=== PATIENT | female | born 1955 | race Caucasian/White ===

== ENCOUNTER 2024-07-21 10:16 | Inpatient (IN) ==
[2024-07-21 11:07] LABS: Basophils # (auto) 0.04 K/uL (0.00-0.20); Basophils % (auto) 0.6 %; Eosinophils # (auto) 0.16 K/uL (0.00-0.50); Eosinophils % (auto) 2.2 %; Hematocrit (blood only) 40.6 % (37.0-47.0); Hemoglobin 13.3 g/dl (12.0-16.0); Immature Granulocytes # (auto) 0.03 K/uL (0.01-0.20); Immature Granulocytes % (auto) 0.4 %; Lymphocytes % (auto) 25.2 %; Mean Corpuscular Hemoglobin 28.8 pg (25.0-34.0); Mean Corpuscular Hgb Conc 32.8 g/dL (32.0-36.0); Mean Corpuscular Volume 87.9 fL (80.0-100.0); Mean Platelet Volume 10.7 fL (9.4-12.4); Monocytes # (auto) 0.59 K/uL (0.11-0.59); Monocytes % (auto) 8.3 %; Neutrophils # (auto) 4.52 K/uL (1.40-6.50); Neutrophils % (auto) 63.3 %; Platelet Count 216 K/uL (130-400); RDW Coefficient of Variation 13.8 % (11.5-14.5); RDW Standard Deviation 44.4 fL (36.4-46.3); Red Blood Count 4.62 M/uL (4.20-5.40); White Blood Count 7.14 K/ul (4.8-10.8)
--- NOTE | 2024-07-21 11:26 | XRay Report ---
XR chest 1V portable CLINICAL HISTORY: Chest pain, nonspecific COMPARISON STUDY: None FINDINGS: Single view portable chest demonstrates no acute cardiopulmonary process. There is evidence of a prior cardiac catheter valve replacement and coronary bypass procedure. Heart size is slightly enlarged. There is mild pulmonary vascular congestion. There is no focal airspace opacity or pleural effusion. There is no pneumothorax. IMPRESSION: Mild cardiomegaly and pulmonary vascular congestion. Otherwise negative portable chest ACT 112: Negative or not required by law. Electronically signed by: Fina Hernandez M.D. 07/21/2024 11:24 AM
[2024-07-21 11:27] LABS: Partial Thromboplastin Ratio 1.1; Partial Thromboplastin Time 29 Seconds (21-31); Prothrombin Time 11.1 Seconds (9.0-12.0)
--- NOTE | 2024-07-21 11:32 | Emergency Department Note ---
Impression & Plan Paroxysmal atrial fibrillation with RVR, COVID-19 virus infection, Shortness of breath, On apixaban therapy ED Provider Note NAME: FANY CALDERÓN AGE: 68 SEX: F : 1955 ARRIVES VIA: Walk-In INFORMANT: Patient ED PROVIDER(S): Thor Whitfield MD CHIEF COMPLAINT: Atrial fibrillation, palpitations, shortness of breath. PLAN: Disposition: Admit MEDICAL DECISION MAKING: The patient is a pleasant 68-year-old woman with past medical history of paroxysmal atrial fibrillation on Eliquis with recent recurrence of her atrial fibrillation this past week who presents to the emergency department for evaluation of ongoing atrial fibrillation with RVR. Patient presents in the setting of being seen at [place] emergency department and per the patient's understanding her EKG was reviewed with her [facility] reagent tender and she was suspected to have atrial flutter. Patient was started on metoprolol 25 mg twice daily. Patient understands that she had not been on metoprolol after her initial diagnosis of A-fib due to having a heart rate in the low 60s when in normal sinus rhythm. Patient reports she began to notice her heart rate becoming fast this past . Despite starting on metoprolol she reports she continues to feel her heart rate fluctuate up and down and feels associated shortness of breath. Patient symptoms occur in the setting of having upper respiratory illness that began a month ago and subsequently resolved over a couple of weeks but then recurred with some more pronounced sinus congestion where she was seen by her PCP and treated with a 10-day course of Augmentin which she completed a week ago. Patient reports that when her initial illness began a month ago she was tested for flu, RSV and COVID-19 and these were negative. She denies any chest pain. She denies any nausea, vomiting or diarrhea. She reports normal oral intake. On evaluation patient is in no acute distress, afebrile with heart rate in the 110s-130s and atrial fibrillation with RVR. She appears clinically dry. EKG demonstrates Atrial fibrillation versus atrial flutter with variable AV block with RVR, 128 bpm without overt acute ischemia. CXR negative for acute cardiopulmonary process per my personal preliminary review/interpretation. WBC 7K with neutrophilia or left shift. H/H within normal limits. Chemistry without metabolic acidosis. BUNs/creatinine is 23 consistent with patient's clinically dry appearance. LFTs are unremarkable. Magnesium was 1.8, low normal and so 1 g of IV magnesium administered. High-sensitivity troponin 10.0, within normal limits. TSH within normal limits. BNP is 450, nonspecific and suspected to be related to the patient's irregular rhythm as opposed to hypervolemia. Respiratory [employer] was positive for COVID-19, which upon reviewing with the patient suspected to correspond with her most recent upper respiratory's, sinus illness for which she was treated by her PCP with antibiotics. Patient denies any active respiratory symptoms and so acute/new COVID-19 infection considered less likely. Patient was treated with IV fluid hydration as well as initial low dose of 2.5 mg of IV Lopressor which had minimal effect on heart rate and so full 5 mg dose of IV Lopressor administered with some improvement to the 90s-low 100s. Patient did report feeling some improvement subsequently. However, she still reports feeling palpitations. We did discuss option for dose increase in her metoprolol and follow-up outpatient with the cardiology office versus admission. Ultimately she did prefer admission at this time. Patient was treated with additional 5 mg of IV Lopressor for additional rate control. [facility] for [facility]. Further management per admitting team. Triage Nursing notes reviewed and agree them. Prior/external medical records reviewed Vital Signs: reviewed Differential diagnosis: Premature contractions, electrolyte abnormality, cardiac dysrhythmia, thyroid dysfunction, pulmonary embolism, infection, gastrointestinal, as well as other pathologies. ER treatment provided: See below. Diagnostics interpreted by me: ECG: Atrial fibrillation versus atrial flutter with variable AV block with RVR, 128 bpm, no overt ST elevation or depression, QTc 435, QRS 86. Cardiac Monitoring: An order for continuous cardiac monitoring was placed and demonstrated Atrial fibrillation versus atrial flutter with variable AV block with RVR, 128 bpm. Laboratory studies: See below Imaging studies: See below Consultation(s[facility] HPI: The patient is a pleasant 68-year-old woman with past medical history of paroxysmal atrial fibrillation on Eliquis with recent recurrence of her atrial fibrillation this past week who presents to the emergency department for evaluation of ongoing atrial fibrillation with RVR. Patient presents in the setting of being seen at [place] emergency department and per the patient's understanding her EKG was reviewed with her [facility] reagent tender and she was suspected to have atrial flutter. Patient was started on metoprolol 25 mg twice daily. Patient understands that she had not been on metoprolol after her initial diagnosis of A-fib due to having a heart rate in the low 60s when in normal sinus rhythm. Patient reports she began to notice her heart rate becoming fast this past . Despite starting on metoprolol she reports she continues to feel her heart rate fluctuate up and down and feels associated shortness of breath. Patient symptoms occur in the setting of having upper respiratory illness that began a month ago and subsequently resolved over a couple of weeks but then recurred with some more pronounced sinus congestion where she was seen by her PCP and treated with a 10-day course of Augmentin which she completed a week ago. Patient reports that when her initial illness began a month ago she was tested for flu, RSV and COVID-19 and these were negative. She denies any chest pain. She denies any nausea, vomiting or diarrhea. She reports normal oral intake. ROS: See above HPI for pertinent positives & negatives. A total of 10 systems reviewed and were otherwise negative. VITALS:See Below PHYSICAL EXAMINATION: GENERAL: Awake, alert, in no distress HENT: Normocephalic, atraumatic. Oropharynx with dry mucous membranes and otherwise unremarkable. EYES: Normal conjunctiva. Sclera non-icteric. NECK: Supple. No nuchal rigidity. FROM. No JVD. RESPIRATORY: Clear to auscultation. CARDIAC: Tachycardic rate, irregular rhythm. Extremities warm and well perfused. Pulses equal. ABDOMEN: Soft, non-distended. No tenderness to palpation. No rebound or guarding. No masses. MUSCULOSKELETAL: Chest examination reveals no tenderness. The back is symmetrical on inspection without obvious abnormality. There is no CVA tenderness to palpation. No joint edema. LOWER EXTREMITIES: Calves are equal size bilaterally and non-tender. No edema. No discoloration. NEURO: Normal sensorium. No sensory or motor deficits noted. SKIN: No rash or jaundice noted. ED COURSE: Critical Care: I have personally spent greater than 35 minutes of critical care time in the direct management of this patient. This includes bedside care, interpretation of diagnostic studies, and testing, discussion with consultants, patient, and family members, and other required patient management activities. This 35 minutes is in excess of all separately billable procedures. Thor Whitfield MD Past Med/Surg History Problem List (Updated 07/22/24 @ 01:47 by Thor Whitfield MD) On apixaban therapy (Acute) Shortness of breath (Acute) COVID-19 virus infection (Acute) Acute heart failure with preserved ejection fraction Paroxysmal atrial fibrillation with RVR (Acute) Right thyroid nodule Multiple thyroid nodules Medical History Afib Fibromuscular dysplasia Social History Smoking Status: Never smoker Hx Alcohol Use: Yes Hx Substance Use: No Preferred Language: Turkish Communication Ability: Effective Housekeeping And Laundry Team Leader Required: No Beliefs That Will Affect Care: None Current Living Situation: Spouse Other Information That Helps Us Care for You: No Feels Safe at Home: Yes Safety Concerns: Feels Safe At This Time Assistive Devices: None Allergies Allergies Allergy/AdvReac Type Severity Reaction Status Date / Time clarithromycin Allergy Unknown . Verified 06/22/23 14:06 Sulfa (Sulfonamide Allergy Unknown . Verified 06/22/23 14:06 Antibiotics) sulfamethoxazole Allergy Unknown . Verified 06/22/23 14:06 trimethoprim Allergy Unknown . Verified 06/22/23 14:06 Home Meds Home Medications Medication Instructions Recorded Confirmed albuterol sulfate 90 mcg/actuation 2 puff inhalation Q6H PRN 12/30/18 07/21/24 aerosol inhaler (ProAir HFA) Shortness Of Breath Or Wheezing apixaban 5 mg tablet (Eliquis) 5 mg PO BID 12/30/18 07/21/24 glucosamine-chondroitin 750 mg-600 2 tab PO DAILY 12/30/18 07/21/24 mg tablet ascorbic acid 100 mg-zinc sulfate 1 tab PO DAILY 06/22/23 07/21/24 200 mg tablet cholecalciferol (vitamin D3) 50 5,000 unit PO DAILY 06/22/23 07/21/24 mcg (2,000 unit) capsule (Vitamin D3) coenzyme Q10 100 mg capsule 200 mg PO DAILY 06/22/23 07/21/24 (CoQ-10) omeprazole 40 mg capsule,delayed 40 mg PO DAILY 06/22/23 07/21/24 release vitamin B complex 1 cap PO DAILY 06/22/23 07/21/24 acetaminophen 500 mg tablet 1,000 mg PO Q6H PRN Pain 07/21/24 07/21/24 ezetimibe 10 mg tablet 10 mg PO DAILY 07/21/24 07/21/24 metoprolol tartrate 25 mg tablet 25 mg PO BID 07/21/24 07/21/24 trazodone 100 mg tablet 25 mg PO HS 07/21/24 07/21/24 Results & Data (ED) Vital Signs Vital Signs - 24 hr 07/21/24 10:18 07/21/24 10:35 07/21/24 10:42 Temperature 36.5 C Temperature Source Temporal Artery Scan Pulse Rate 124 H 116 H Pulse Rate [Left Finger] Pulse Rate from SpO2 Sensor Pulse Rhythm [Left Finger] Pulse Strength [Left Finger] Respiratory Rate 18 17 Respiratory Effort / Characteristics Non-Labored Spontaneous Respiratory Depth Normal Blood Pressure 115/82 Blood Pressure [Left Arm] Blood Pressure Mean 93 Blood Pressure Mean [Left Arm] Blood Pressure Position Sitting Blood Pressure Position [Left Arm] Pulse Oximetry 97 98 Oxygen Delivery Method Room Air Room Air Sepsis Recent Fever Within 48 Hours No Sepsis New/Unexplained Change in Mental Status No Sepsis Action Taken by Nursing No Action Required 07/21/24 10:54 07/21/24 11:43 07/21/24 11:43 Temperature Temperature Source Pulse Rate 115 H 128 H Pulse Rate [Left Finger] Pulse Rate from SpO2 Sensor Pulse Rhythm [Left Finger] Pulse Strength [Left Finger] Respiratory Rate Respiratory Effort / Characteristics Respiratory Depth Blood Pressure 129/90 Blood Pressure [Left Arm] Blood Pressure Mean 95 Blood Pressure Mean [Left Arm] Blood Pressure Position Blood Pressure Position [Left Arm] Pulse Oximetry Oxygen Delivery Method Sepsis Recent Fever Within 48 Hours Sepsis New/Unexplained Change in Mental Status Sepsis Action Taken by Nursing 07/21/24 12:12 07/21/24 12:15 07/21/24 12:31 Temperature Temperature Source Pulse Rate 117 H 97 H Pulse Rate [Left Finger] Pulse Rate from SpO2 Sensor Pulse Rhythm [Left Finger] Pulse Strength [Left Finger] Respiratory Rate 16 22 Respiratory Effort / Characteristics Respiratory Depth Blood Pressure 112/77 Blood Pressure [Left Arm] Blood Pressure Mean 106 Blood Pressure Mean [Left Arm] Blood Pressure Position Blood Pressure Position [Left Arm] Pulse Oximetry Oxygen Delivery Method Sepsis Recent Fever Within 48 Hours Sepsis New/Unexplained Change in Mental Status Sepsis Action Taken by Nursing 07/21/24 12:31 07/21/24 12:33 07/21/24 12:36 Temperature Temperature Source Pulse Rate 106 H 127 H Pulse Rate [Left Finger] Pulse Rate from SpO2 Sensor Pulse Rhythm [Left Finger] Pulse Strength [Left Finger] Respiratory Rate 12 9 L Respiratory Effort / Characteristics Respiratory Depth Blood Pressure 112/77 Blood Pressure [Left Arm] Blood Pressure Mean 106 Blood Pressure Mean [Left Arm] Blood Pressure Position Blood Pressure Position [Left Arm] Pulse Oximetry Oxygen Delivery Method Sepsis Recent Fever Within 48 Hours Sepsis New/Unexplained Change in Mental Status Sepsis Action Taken by Nursing 07/21/24 12:43 07/21/24 12:43 07/21/24 12:43 Temperature Temperature Source Pulse Rate Pulse Rate [Left Finger] Pulse Rate from SpO2 Sensor Pulse Rhythm [Left Finger] Pulse Strength [Left Finger] Respiratory Rate Respiratory Effort / Characteristics Respiratory Depth Blood Pressure 116/82 116/82 116/82 Blood Pressure [Left Arm] Blood Pressure Mean 109 109 109 Blood Pressure Mean [Left Arm] Blood Pressure Position Blood Pressure Position [Left Arm] Pulse Oximetry Oxygen Delivery Method Sepsis Recent Fever Within 48 Hours Sepsis New/Unexplained Change in Mental Status Sepsis Action Taken by Nursing 07/21/24 12:49 07/21/24 12:52 07/21/24 13:12 Temperature Temperature Source Pulse Rate 112 H 124 H 127 H Pulse Rate [Left Finger] Pulse Rate from SpO2 Sensor 124 H Pulse Rhythm [Left Finger] Pulse Strength [Left Finger] Respiratory Rate 14 Respiratory Effort / Characteristics Respiratory Depth Blood Pressure 116/82 116/82 Blood Pressure [Left Arm] Blood Pressure Mean Blood Pressure Mean [Left Arm] Blood Pressure Position Blood Pressure Position [Left Arm] Pulse Oximetry 98 Oxygen Delivery Method Sepsis Recent Fever Within 48 Hours Sepsis New/Unexplained Change in Mental Status Sepsis Action Taken by Nursing 07/21/24 13:30 07/21/24 13:30 07/21/24 13:30 Temperature Temperature Source Pulse Rate 103 H Pulse Rate [Left Finger] Pulse Rate from SpO2 Sensor 89 Pulse Rhythm [Left Finger] Pulse Strength [Left Finger] Respiratory Rate 14 Respiratory Effort / Characteristics Respiratory Depth Blood Pressure 137/88 137/88 Blood Pressure [Left Arm] Blood Pressure Mean 94 94 Blood Pressure Mean [Left Arm] Blood Pressure Position Blood Pressure Position [Left Arm] Pulse Oximetry 96 Oxygen Delivery Method Sepsis Recent Fever Within 48 Hours Sepsis New/Unexplained Change in Mental Status Sepsis Action Taken by Nursing 07/21/24 14:21 07/21/24 14:23 07/21/24 14:27 Temperature Temperature Source Pulse Rate 106 H 99 H 92 H Pulse Rate [Left Finger] Pulse Rate from SpO2 Sensor 107 H 92 H Pulse Rhythm [Left Finger] Pulse Strength [Left Finger] Respiratory Rate 13 22 Respiratory Effort / Characteristics Respiratory Depth Blood Pressure Blood Pressure [Left Arm] Blood Pressure Mean Blood Pressure Mean [Left Arm] Blood Pressure Position Blood Pressure Position [Left Arm] Pulse Oximetry 96 98 Oxygen Delivery Method Sepsis Recent Fever Within 48 Hours Sepsis New/Unexplained Change in Mental Status Sepsis Action Taken by Nursing 07/21/24 14:30 07/21/24 14:30 07/21/24 14:45 Temperature Temperature Source Pulse Rate 107 H Pulse Rate [Left Finger] Pulse Rate from SpO2 Sensor 88 Pulse Rhythm [Left Finger] Pulse Strength [Left Finger] Respiratory Rate 20 Respiratory Effort / Characteristics Respiratory Depth Blood Pressure 109/85 109/85 Blood Pressure [Left Arm] Blood Pressure Mean 100 100 Blood Pressure Mean [Left Arm] Blood Pressure Position Blood Pressure Position [Left Arm] Pulse Oximetry 93 Oxygen Delivery Method Sepsis Recent Fever Within 48 Hours Sepsis New/Unexplained Change in Mental Status Sepsis Action Taken by Nursing 07/21/24 15:00 07/21/24 15:00 07/21/24 15:00 Temperature Temperature Source Pulse Rate 124 H Pulse Rate [Left Finger] Pulse Rate from SpO2 Sensor 115 H Pulse Rhythm [Left Finger] Pulse Strength [Left Finger] Respiratory Rate 12 Respiratory Effort / Characteristics Respiratory Depth Blood Pressure 110/80 110/80 Blood Pressure [Left Arm] Blood Pressure Mean 84 84 Blood Pressure Mean [Left Arm] Blood Pressure Position Blood Pressure Position [Left Arm] Pulse Oximetry 97 Oxygen Delivery Method Sepsis Recent Fever Within 48 Hours Sepsis New/Unexplained Change in Mental Status Sepsis Action Taken by Nursing 07/21/24 15:00 07/21/24 15:07 07/21/24 15:07 Temperature Temperature Source Pulse Rate Pulse Rate [Left Finger] 115 H Pulse Rate from SpO2 Sensor Pulse Rhythm [Left Finger] Regular Pulse Strength [Left Finger] Normal Respiratory Rate 20 Respiratory Effort / Characteristics Respiratory Depth Blood Pressure 110/80 Blood Pressure [Left Arm] 110/80 Blood Pressure Mean 84 Blood Pressure Mean [Left Arm] 90 Blood Pressure Position Blood Pressure Position [Left Arm] Sitting Pulse Oximetry 99 98 Oxygen Delivery Method Room Air Room Air Sepsis Recent Fever Within 48 Hours Sepsis New/Unexplained Change in Mental Status Sepsis Action Taken by Nursing 07/21/24 15:27 07/21/24 15:30 07/21/24 15:30 Temperature Temperature Source Pulse Rate 111 H Pulse Rate [Left Finger] Pulse Rate from SpO2 Sensor 100 H Pulse Rhythm [Left Finger] Pulse Strength [Left Finger] Respiratory Rate 17 Respiratory Effort / Characteristics Respiratory Depth Blood Pressure 135/98 135/98 Blood Pressure [Left Arm] Blood Pressure Mean 102 102 Blood Pressure Mean [Left Arm] Blood Pressure Position Blood Pressure Position [Left Arm] Pulse Oximetry 98 Oxygen Delivery Method Sepsis Recent Fever Within 48 Hours Sepsis New/Unexplained Change in Mental Status Sepsis Action Taken by Nursing 07/21/24 15:33 07/21/24 15:34 07/21/24 16:06 Temperature Temperature Source Pulse Rate 99 H 111 H 101 H Pulse Rate [Left Finger] Pulse Rate from SpO2 Sensor 106 H 115 H Pulse Rhythm [Left Finger] Pulse Strength [Left Finger] Respiratory Rate 20 24 Respiratory Effort / Characteristics Respiratory Depth Blood Pressure 135/98 Blood Pressure [Left Arm] Blood Pressure Mean Blood Pressure Mean [Left Arm] Blood Pressure Position Blood Pressure Position [Left Arm] Pulse Oximetry 99 95 Oxygen Delivery Method Sepsis Recent Fever Within 48 Hours Sepsis New/Unexplained Change in Mental Status Sepsis Action Taken by Nursing Laboratory Data Attestation: I reviewed the patient's lab results. 07/21/24 10:40 07/21/24 10:40 Lab Results 07/21/24 Range/Units 10:40 WBC 7.14 (4.8-10.8) K/ul RBC 4.62 (4.20-5.40) M/uL Hgb 13.3 (12.0-16.0) g/dl Hct 40.6 (37.0-47.0) % MCV 87.9 (80.0-100.0) fL MCH 28.8 (25.0-34.0) pg MCHC 32.8 (32.0-36.0) g/dL RDW Std Deviation 44.4 (36.4-46.3) fL RDW Coeff of Tl 13.8 (11.5-14.5) % Plt Count 216 (130-400) K/uL MPV 10.7 (9.4-12.4) fL Immature Gran % (Auto) 0.4 % Neut % (Auto) 63.3 % Lymph % (Auto) 25.2 % [place] % (Auto) 8.3 % Eos % (Auto) 2.2 % Baso % (Auto) 0.6 % Neut # (Auto) 4.52 (1.40-6.50) K/uL Lymph # (Auto) 1.80 (1.20-3.40) K/uL [place] # (Auto) 0.59 (0.11-0.59) K/uL Eos # (Auto) 0.16 (0.00-0.50) K/uL Baso # (Auto) 0.04 (0.00-0.20) K/uL Immature Gran # (Auto) 0.03 (0.01-0.20) K/uL PT 11.1 (9.0-12.0) Seconds INR 1.0 (0.9-1.1) APTT 29 (21-31) Seconds PTT Ratio 1.1 Sodium 140 (136-145) mmol/L Potassium 4.2 (3.5-5.1) mmol/L Chloride 107 (98-107) mmol/L Carbon Dioxide 27 (21-32) mmol/L Anion Gap 6 (3-11) BUN 18 (6-23) mg/dl Creatinine 0.77 (0.6-1.2) mg/dl Est Cr Clr Drug Dosing 69.9 ml/min eGFR 85.02 BUN/Creatinine Ratio 23.4 H (10-20) Glucose 98 (70-99(Fasting)) mg/dl Calcium 9.4 (8.6-10.3) mg/dl Phosphorus 3.1 (2.5-4.9) mg/dl Magnesium 1.8 (1.7-2.4) mg/dl Total Bilirubin 0.5 (0.2-1.0) mg/dl AST 21 (13-39) U/L ALT 21 (7-52) U/L Alkaline Phosphatase 61 (34-104) U/L Troponin I High Sens 10.0 (0-14) pg/ml B-Natriuretic Peptide 452 H (0-100) pg/ml Total Protein 6.9 (6.0-8.3) gm/dl Albumin 3.9 (3.4-5.0) gm/dl Globulin 3.0 (2.5-4.0) gm/dl Albumin/Globulin Ratio 1.3 (0.9-2) TSH 2.126 (0.300-4.500) uIu/ml Administered Medications Acetaminophen (Acetaminophen 325 Mg Tab) 650 mg PO Q4H PRN PRN Reason: Pain or Fever Stop: 08/20/24 17:00 Last Admin: 07/21/24 21:49 Dose: 650 mg Documented By: SANDRA Apixaban (Apixaban 5 Mg Tablet) 5 mg PO BID [facility] Stop: 08/20/24 20:59 Last Admin: 07/21/24 21:49 Dose: 5 mg Documented By: SANDRA Diltiazem HCl 125 mg/ Dextrose 125 mls @ 0 mls/hr IV .Q0M [facility]; Protocol Stop: 08/20/24 17:29 Last Titration: 07/21/24 23:52 Dose: 0 mg/hr, 0 mls/hr Documented By: JANAK Co-signed By: RUIZ Titration: 07/21/24 22:50 Dose: 5 mg/hr, 5 mls/hr Documented By: JANAK Co-signed By: RUIZ Titration: 07/21/24 21:42 Dose: 0 mg/hr, 0 mls/hr Documented By: SANDRA Co-signed By: ASHLEE Admin: 07/21/24 18:14 Dose: 5 mg/hr, 5 mls/hr Documented By: GERARDO Co-signed By: JACKI Metoprolol Tartrate (Metoprolol Tartrate 25 Mg Tab) 25 mg PO TID [facility] Stop: 08/20/24 17:00 Last Admin: 07/21/24 22:47 Dose: 25 mg Documented By: Admin: 07/21/24 18:11 Dose: 25 mg Documented By: GERARDO Trazodone HCl (Trazodone Hcl 50 Mg Tab) 25 mg PO HS [facility] Stop: 08/20/24 20:59 Last Admin: 07/21/24 22:47 Dose: 25 mg Documented By: JANAK Discontinued Medications Furosemide (Furosemide Inj 20 Mg/2 Ml Vial) 20 mg IV ONE ONE Stop: 07/21/24 17:02 Last Admin: 07/21/24 18:13 Dose: 20 mg Documented By: GERARDO Sodium Chloride (Nss) 1,000 mls @ 999 mls/hr IV .Q1H1M ONE Stop: 07/21/24 12:28 Last Infusion: 07/21/24 12:43 Dose: Infused Documented By: Admin: 07/21/24 11:42 Dose: 999 mls/hr Documented By: MILDRED Magnesium Sulfate/Dextrose (Magnesium Sulfate / D5w) 1 gm in 100 mls @ 100 mls/hr IV NOW STA Stop: 07/21/24 13:34 Last Infusion: 07/21/24 14:10 Dose: Infused Documented By: Admin: 07/21/24 13:10 Dose: 100 mls/hr Documented By: MILDRED Metoprolol Tartrate (Metoprolol Tartrate 1 Mg/Ml Vial) 2.5 mg IV NOW STA Stop: 07/21/24 11:31 Last Admin: 07/21/24 11:43 Dose: 2.5 mg Documented By: MILDRED Metoprolol Tartrate (Metoprolol Tartrate 1 Mg/Ml Vial) 5 mg IV NOW STA Stop: 07/21/24 12:35 Last Admin: 07/21/24 12:49 Dose: 5 mg Documented By: MILDRED Metoprolol Tartrate (Metoprolol Tartrate 1 Mg/Ml Vial) 5 mg IV NOW STA Stop: 07/21/24 15:23 Last Admin: 07/21/24 15:34 Dose: 5 mg Documented By: GERARDO Imaging Data Radiologist's Impression: Chest X-Ray 07/21/24 10:44 XR chest 1V portable CLINICAL HISTORY: Chest pain, nonspecific COMPARISON STUDY: None FINDINGS: Single view portable chest demonstrates no acute cardiopulmonary process. There is evidence of a prior cardiac catheter valve replacement and coronary bypass procedure. Heart size is slightly enlarged. There is mild pulmonary vascular congestion. There is no focal airspace opacity or pleural effusion. There is no pneumothorax. IMPRESSION: Mild cardiomegaly and pulmonary vascular congestion. Otherwise negative portable chest ACT 112: Negative or not required by law. Electronically signed by: Fina Hernandez M.D. 07/21/2024 11:24 AM Discharge Plan Visit Data Chief Complaint: Cardiac Assessment Stated Complaint: WAS IN AFIB OVER WEEKEND, FLUCTUATING BP ED Provider: Thor Whitfield Discharge Problem: Paroxysmal atrial fibrillation with RVR, COVID-19 virus infection, Shortness of breath, On apixaban therapy Patient Disposition: Admitted As Inpatient Discharge Instructions Interventions: ED Discharge Assessment Last Done: 07/21/24 22:04
[2024-07-21 11:41] LABS: Albumin Globulin Ratio 1.3 (0.9-2); Albumin Level 3.9 gm/dl (3.4-5.0); BUN Creatinine Ratio 23.4 (10-20); Bilirubin,Total 0.5 mg/dl (0.2-1.0); Calcium 9.4 mg/dl (8.6-10.3); Creatinine Clr Calc Pharmacy 69.9 ml/min; Potassium 4.2 mmol/L (3.5-5.1); Total Protein 6.9 gm/dl (6.0-8.3)
[2024-07-21] MEDS: SODIUM CHLORIDE 0.9% 1,000 ML IV ONE (11:42)
[2024-07-21] MEDS: METOPROLOL TARTRATE 1 MG/ML VIAL IV STA ×3 (11:43→15:34)
[2024-07-21 11:50] LABS: Magnesium 1.8 mg/dl (1.7-2.4); Phosphorus 3.1 mg/dl (2.5-4.9)
[2024-07-21 12:05] LABS: Thyroid Stimulating Hormone 2.126 uIu/ml (0.300-4.500)
[2024-07-21] MEDS: MAGNESIUM SULFATE / D5W 1 GM/100 ML BAG IV STA (13:10)
--- NOTE | 2024-07-21 13:10 | Electrocardiogram Report ---
Test Reason : Blood Pressure : */* mmHG Vent. Rate : 128 BPM Atrial Rate : * BPM P-R Int : * ms QRS Dur : 86 ms QT Int : 298 ms P-R-T Axes : * 37 -55 degrees QTcB Int : 435 ms Atrial fibrillation with rapid ventricular response Abnormal ECG When compared with ECG of 30-Dec-2018 14:15, Atrial fibrillation has replaced Sinus rhythm Vent. rate has increased by [address] now depressed in Inferior leads Confirmed by Fuad Thomas ([id number]) on 07/21/2024 1:09:37 PM Referred By: REFERRED SELF Confirmed By: Fuad Thomas
[2024-07-21 13:58] LABS: Adenovirus PCR Not Detected (NotDetected); Bordetella parapertussis PCR Not Detected (NotDetected); Bordetella pertussis PCR Not Detected (NotDetected); Chlamydia pneumoniae PCR Not Detected (NotDetected); Coronavirus 229E PCR Not Detected (NotDetected); Coronavirus CoV-2 (COVID19)PCR DETECTED (NotDetected); Coronavirus HKU1 PCR Not Detected (NotDetected); Coronavirus NL63 PCR Not Detected (NotDetected); Coronavirus OC43PCR Not Detected (NotDetected); Human Metapneumovirus PCR Not Detected (NotDetected); Influenza A PCR Not Detected (NotDetected); Influenza B PCR Not Detected (NotDetected); Mycoplasma pneumoniae PCR Not Detected (NotDetected); Parainfluenza Virus 1 PCR Not Detected (NotDetected); Parainfluenza Virus 2 PCR Not Detected (NotDetected); Parainfluenza Virus 3 PCR Not Detected (NotDetected); Parainfluenza Virus 4 PCR Not Detected (NotDetected); Respiratory Syncytial VirusPCR Not Detected (NotDetected); Rhinovirus/Enterovirus PCR Not Detected (NotDetected)
--- OUTSIDE RECORDS SUMMARY | 2024-07-21 15:30 | External Medical Summary | Summary of Care ---
Author Name Unknown Organization [facility] Address [address] [address] Phone [phone] Care Team Providers Care General Manager Food Name Role Phone Dar Montilla MD Primary Care Provider [phone] Reason for Visit * Reason Comments Outpatient Testing Encounter Details Date Type Department Care Team (Late st Contact Info) Description 04/21/2024 8:30 AM EST Laboratory Laboratory [address] [place] [id number] [place] [address] [employer] Other*[id number]; Mixed dyslipidemia; Malaise and fatigue; Nontoxic uninodular goiter Allergies Active Allergy Reactions Criticality Noted Date Comments Sulfa Antibiotics 08/31/2005 Rash Clarithromycin 08/31/2005 Rash Rosuvastatin Muscle pain 12/01/2020 Atorvastatin Muscle pain 10/29/2014 Ezetimibe Muscle pain 08/29/2018 documented as of this encounter (statuses as of 04/21/2024) Medications BAIRON 180 MG PO TABS One daily as needed 0 6 Active temazepam (RESTORIL) 15 MG Capsule Take 1 Capsule by mouth at bedtime as needed. 0 8 Active Cholecalciferol (VITAMIN D3) 2000 units Capsule Take 1 Capsule by mouth in the morning. Active Glucosamine-Chond roit-Vit C-Mn (GLUCOSAMINE CHONDR 1500 COMPLX) Capsule Take 1 Capsule by mouth in the morning. Active Omeprazole Magnesium 20 MG Oral Tablet Delayed Release (PriLOSEC OTC) Take 3 Tablets by mouth in the morning. Active Amoxicillin 500 MG Oral Capsule (Amoxil)Indicatio ns:Status post mitral valve replacement with bioprosthetic valve TAKE 4 CAPSULES BY MOUTH 1 HOUR PRIOR TO DENTAL PROCEDURES 4 Capsule 6 2 Active Atorvastatin Calcium 10 MG Oral Tablet (Lipitor) Take 1/2 of a 20 mg tab daily. 90 Tablet 3 3 Active Eliquis 5 MG Oral TabletIndications :Paroxysmal A-fib (HCC) Take 1 Tablet by mouth in the morning and 1 Tablet before bedtime. 180 Tablet 3 4 Active documented as of this encounter (statuses as of 04/21/2024) Active Problems Problem Noted Date Diagnosed Date HTN, goal below 140/80 02/03/2014 Paroxysmal A-fib 02/03/2014 Postoperative anemia due to acute blood loss 07/2013 Thrombocytopenia 02/03/2014 Status post mitral valve rep lacement with bioprosthetic valve 02/03/2014 FAMILY HX-MALIGNANCY NEC - melanoma 11/17/2009 documented as of this encounter (statuses as of 04/21/2024) Resolved Problems Problem Noted Date Diagnosed Date Resolved Date [employer] Other*[id number] 01/19/2014 07/11/2016 Overview (01/19/2014): Study Title: Genomic Markers for Patients with Cardiovascular Disease Project # [id number] [employer] Bpm Developer: Ainsley Herrmann MD [phone] Mitral valve prolapse 03/06/20112013 Mitral valve regurgitation congenital 03/06/2011 03/02/2014 #[id number] WEIGHT LOSS\MR#[id number]\[facility]#[id number]\Group ID# [id number] 08/07/2007 10/06/2008 Overview (08/07/2007): #[id number] WEIGHT LOSS PI-Dr. Fuad Lomas (pager # - [phone]) - Please contact if patient admitted or comes into Emergency Department ADVANCE DIRECTIVE INFORMATION 09/26/2005 04/07/2024 Overview (09/26/2005): No, Advance Directive brochure offered , patient declined. documented as of this encounter (statuses as of 04/21/2024) Immunizations Name Administration Dates Next Due Seasonal Influenza Vac., MDV, IM, 0.5 mL (Fluzon e) 03/18/2015,04/16/2014 documented as of this encounter Social History Tobacco Use Types Packs/Day Years Used Date Smoking Tobacco: Former Cigarettes 1 6 1 - 03/28/1984 Smokeless Tobacco: Never Comments:Quit 1982 Alcohol Use Standard Drinks/Week Comments Yes 0 (1 standard drink = 0.6 oz pur e alcohol) Occasionally Comments No Sex and Gender Information Value Date Recorded Sex Assigned at Not on file Legal Sex Female 5:26 AM EST Gender Identity Not on file Sexual Orientation Not on file documented as of this encounter Plan of Treatment Upcoming Encounters Date Type Department Care Team (Late st Contact Info) Description 12/12/2024 9:30 AM EDT Office Visit Cardiology, [facility] [address] [facility] [place] [address] Laura De Jesus PA-C [address] [place] [address] [place] [phone] Pending Results Name Type Priority Associated Diagnoses Date /Time MYCODE SUBSEQUENT ADULT Lab Routine [employer] Other*[id number] 04/21/2024 8:58 AM EST HEPATIC FUNCTION PANEL Lab Routine Mixed dyslipidemia Malaise and fatigue Nontoxic uninodular goiter 04/21/2024 8:58 AM EST CBC WITH WBC DIFFERENTIAL Lab Routine Mixed dyslipidemia Malaise and fatigue Nontoxic uninodular goiter 04/21/2024 8:58 AM EST BASIC METABOLIC PANEL Lab Routine Mixed dyslipidemia Malaise and fatigue Nontoxic uninodular goiter 04/21/2024 8:58 AM EST LIPID PANEL WITH DIRECT LDL IF TG IS HIGH Lab Routine Mixed dyslipidemia Malaise and fatigue Nontoxic uninodular goiter 04/21/2024 8:58 AM EST TSH WITH FREE T4 IF INDICATED Lab Routine Mixed dyslipidemia Malaise and fatigue Nontoxic uninodular goiter 04/21/2024 8:58 AM EST MYCODE SST1 Lab Routine [employer] Other*[id number] 04/21/2024 8:58 AM EST MYCODE SST2 Lab Routine [employer] Other*[id number] 04/21/2024 8:58 AM EST CBC Lab Routine Mixed dyslipidemia Malaise and fatigue Nontoxic uninodular goiter 04/21/2024 8:58 AM EST DIFFERENTIAL, AUTOMATED Lab Routine Mixed dyslipidemia Malaise and fatigue Nontoxic uninodular goiter 04/21/2024 8:58 AM EST Health Maintenance Due Date Last Done Comments Depression Screening 1969 Albumin/Creatinine Ratio 10/01/1975 Hepatitis C Screening 10/01/1975 Colonoscopy 2002 Fecal Occult Blood Test 2002 Sigmoidoscopy 2002 Zoster Vaccines (1 of 2) 10/01/2007 GFR 12/13/2019 12/12/2018, 02/03, 10/16/2014, Additional history exists DTap/Tdap Vaccines (2 - Td or Tdap) 07/22/2020 07/22/2010 Pneumococcal Vaccine: 65+ Years (1 of 1 - PCV) 2022 Cologuard 08/20/2023 08/19/2020, 08/16/2020 Colorectal Cancer Screening 08/20/2023 Mammogram 09/27/2023 09/26/2022, 08/03, 06/02/2020, Additional history exists COVID-19 Vaccine ( - season) 2024 Influenza Vaccine (FLU shot) (#1) 2024 04/09/2019, 03/18/2015, 04/16/2014, Additional history exists Lipid Panel 11/29/2028 11/30/2023, 12/03, 03/01/2016, Additional history exists DXA Scan 11/06/2032 11/06/2022, 11/2016, 11/11/2014, Additional history exists HPV (Gardasil) Vaccine Aged Out No lo nger eligible based on patient's age to complete this topic Hepatitis B Vaccine Aged Out No longe r eligible based on patient's age to complete this topic MENINGOCOCCAL (MENACTRA/MENVEO) Aged Out No longer eligible based on patient's age to complete this topic documented as of this encounter Medical Devices Implanted Type Area Development Editor Device Identifier Shelf Expiration Date Model / Serial / Lot Valve Enrike Miles Ii C118-50-[id number] - [id number] Implanted:Qty : 1 on 01/28/2014 at [facility] Tissue - Non Human Left: Heart [employer] : CARDIAC SURGERY 10/12/2016 [id number] / [id number] / Sut Steel 6 M654g - [id number] Implanted:Qty : 5 on 01/28/2014 at OR [facility] [place] N/A: Chest JNJ : [employer] 01/01/2019 [id number] / / [id number] documented as of this encounter Visit Diagnoses Diagnosis [employer] Other*[id number] Mixed dyslipidemia Mixed hyperlipidemia Malaise and fatigue Other malaise and fatigue Nontoxic uninodular goiter documented in this encounter Advance Directives * Full Code (Latest Code Status on File) Date Activated Date Inactivated Comments 01/28/2014 1:38 PM 02/03/2014 5:18 PM This order re flects the patients wishes and were consensually agreed upon. Care Teams General Manager Food Relationship Specialty Start Date End Date Dar Montilla MD [address] [place] [address] [id number] PCP - General Family Medicine 04/14/14 documented as of this encounter
--- OUTSIDE RECORDS SUMMARY | 2024-07-21 15:30 | External Medical Summary ---
Author Name Unknown Address Unknown Organization [id number]:[place] [facility] [place] [address] [place] [address] Laboratory Report Ordering Provider Test Date Status MARK BRODERICK 04/21/2024 08:58:46 Final Observation Date Value Abnormality Reference (Units ) Status MYCODE SPECIMEN-SST 04/21/2024 08:58:46 Freezing of extracted DNA, whole blood and/or serum. Final Performing Location LABORATORY [facility] - [address] [place] [address]
--- OUTSIDE RECORDS SUMMARY | 2024-07-21 15:30 | External Medical Summary ---
Author Name Unknown Address Unknown Organization [id number]:LABORATORY [facility] [place] - [address] [place] [address] Laboratory Report Ordering Provider Test Date Status GEORGETTE SOMMERS 04/21/2024 08:58:46 Final Observation Date Value Abnormality Reference (Units ) Status SYNC LEUKOCYTES IN BLOOD BY AUTOMATED COUNT 04/21/2024 08:58:46 4.41 4.00-10.80 (K/uL) Final Segs 04/21/2024 08:58:46 51.7 40.0-75.0 (%) Final Lymphs % 04/21/2024 08:58:46 35.4 18.0-42.0 (%) Final Monos 04/21/2024 08:58:46 8.8 1.0-11.0 (%) Final Eosinophils 04/21/2024 08:58:46 3.2 0.0-6.0 (%) Final Basos 04/21/2024 08:58:46 0.7 0.0-2.0 (%) Final Immature Granulocyte, Percent 04/21/2024 08:58:46 0.2 0.0-2.0 (%) Final Absolute Segs 04/21/2024 08:58:46 2.28 1.80-7.70 (K/uL) Final Lymphs, absolute 04/21/2024 08:58:46 1.56 1.00-4.80 (K/ul) Final Monos, Abs 04/21/2024 08:58:46 0.39 0.00-1.10 (K/uL) Final Eos, Abs 04/21/2024 08:58:46 0.14 0.00-0.70 (K/uL) Final Basos, Abs 04/21/2024 08:58:46 0.03 0.00-0.20 (K/uL) Final Immature Granulocytes, Number 04/21/2024 08:58:46 0.01 0.00-0.20 (K/uL) Final Performing Location LABORATORY [facility] - [address] [facility] [address]
--- OUTSIDE RECORDS SUMMARY | 2024-07-21 15:30 | External Medical Summary ---
Author Name Unknown Address Unknown Organization K01[place] [facility] [place] [address] [place] [address] Laboratory Report Ordering Provider Test Date Status GEORGETTE SOMMERS 04/21/2024 08:58:46 Final Observation Date Value Abnormality Reference (Units ) Status BUN 04/21/2024 08:58:46 16 6-20 (mg/dL) Final Creatinine 04/21/2024 08:58:46 0.7 0.5-1.0 (mg/dL) Final Glomerular filtration rate/1.73 sq M.predicted [Volume Rate/Area] in Serum, Plasma or Blood by Creatinine-based formula (CKD-EPI) 04/21/2024 08:58:46 >90 >=60 (mL/min) Final eGFR is calculated based on the CKD-EPI 2020 equation. Sodium 04/21/2024 08:58:46 140 135-146 (m mol/L) Final Potassium 04/21/2024 08:58:46 4.3 3.5-5.1 (m mol/L) Final Cl 04/21/2024 08:58:46 106 98-107 (mm ol/L) Final CO2 04/21/2024 08:58:46 26 22-32 (mmo l/L) Final Anion gap 04/21/2024 08:58:46 8 7-15 (mmol /L) Final Glucose 04/21/2024 08:58:46 87 70-120 (mg /dL) Final Calcium 04/21/2024 08:58:46 9.2 8.4-10.2 ( mg/dL) Final Performing Location [place] [facility] [place] [address] [place] [address]
--- OUTSIDE RECORDS SUMMARY | 2024-07-21 15:30 | External Medical Summary ---
Author Name Unknown Address Unknown Organization K01:LABORATORY [facility] [place] [address] [place] [address] Laboratory Report Ordering Provider Test Date Status GEORGETTE SOMMERS 04/21/2024 08:58:46 Final Observation Date Value Abnormality Reference (Units ) Status WBC, Total 04/21/2024 08:58:46 4.41 4.00-10.80 (K/uL) Final RBC 04/21/2024 08:58:46 4.50 3.85-5.15 (M/uL) Final Hemoglobin 04/21/2024 08:58:46 13.4 12.0-15.3 (g/dL) Final HCT 04/21/2024 08:58:46 42.0 36.0-45.2 (%) Final MCV 04/21/2024 08:58:46 93.3 81.5-97.5 (fL) Final MCH 04/21/2024 08:58:46 29.8 27.0-34.0 (pg) Final MCHC 04/21/2024 08:58:46 31.9 32.0-36.0 (g/dL) Final RDW 04/21/2024 08:58:46 13.2 11.5-15.5 (%) Final Platelets 04/21/2024 08:58:46 199 140-400 (K/uL) Final MPV 04/21/2024 08:58:46 10.8 6.6-11.1 (fL) Final Nucleated erythrocytes/100 leukocytes [Ratio] in Blood by Automated count 04/21/2024 08:58:46 0 <=0 (/100 WBCs) Final Performing Location LABORATORY [facility] [place] - [address] [place] [address]
--- OUTSIDE RECORDS SUMMARY | 2024-07-21 15:30 | External Medical Summary ---
Author Name Unknown Address Unknown Organization K[place] [facility] [place] [address] [place] [address] Laboratory Report Ordering Provider Test Date Status GEORGETTE SOMMERS 04/21/2024 08:58:46 Final Observation Date Value Abnormality Reference (Units ) Status Albumin 04/21/2024 08:58:46 4.3 3.8-5.0 (g/dL) Final AST (Aspartate aminotransferase) 04/21/2024 08:58:46 24 10-35 (U/L) Final Alk Phos 04/21/2024 08:58:46 72 35-130 (U/L) Final ALT (Alanine aminotransferase) 04/21/2024 08:58:46 19 10-35 (U/L) Final Bilirubin, Total 04/21/2024 08:58:46 0.3 <=1.2 (mg/dL) Final Bilirubin, Direct 04/21/2024 08:58:46 <0.2 0.0-0.3 (mg/dL) Final Protein 04/21/2024 08:58:46 6.6 6.0-8.3 (g/dL) Final Performing Location [place] [facility] [place] [address] [place] [address]
--- OUTSIDE RECORDS SUMMARY | 2024-07-21 15:30 | External Medical Summary ---
Author Name Unknown Address Unknown Organization K01[place] [facility] [address] [place] [address] Laboratory Report Ordering Provider Test Date Status GEORGETTE SOMMERS 04/21/2024 08:58:46 Final Observation Date Value Abnormality Reference (Units ) Status TSH 04/21/2024 08:58:46 1.99 0.27-4.20 (uIU/mL) Final Performing Location LABORATORY [facility] - [address] [place] [address]
--- OUTSIDE RECORDS SUMMARY | 2024-07-21 15:30 | External Medical Summary ---
Author Name Unknown Address Unknown Organization K01:LAB[facility]ATORY [facility] [place] - [address] [place] [address] Laboratory Report Ordering Provider Test Date Status MARK BRODERICK 04/21/2024 08:58:46 Final Observation Date Value Abnormality Reference (Units ) Status MYCODE SPECIMEN-SST 04/21/2024 08:58:46 Freezing of extracted DNA, whole blood and/or serum. Final Performing Location LABORATORY [facility] - [address] [place] [address]
--- OUTSIDE RECORDS SUMMARY | 2024-07-21 15:31 | External Medical Summary ---
Author Name Unknown Address Unknown Organization K01:LABORATORY [facility] - [address] [place] [place] [address] Laboratory Report Ordering Provider Test Date Status GEORGETTE SOMMERS 04/21/2024 08:58:46 Final Observation Date Value Abnormality Reference (Units ) Status Triglyceride 04/21/2024 08:58:46 64 <=174 ( mg/dL) Final Triglyceride Reference Range s (mg/dL):
<150 Acceptable
150-174 Borderline high
175-499 High
>=500 Very high Cholesterol 04/21/2024 08:58:46 214 Above high normal <200 (mg/dL) Final Total Cholesterol Reference Ranges (mg/dL):
<200 Desirable
200-239 Borderline high
>=240 High HDL 04/21/2024 08:58:46 70 >49 (mg/dL ) Final HDL Cholesterol Reference Ra nges (mg/dL):
>=60 High (Desirable)
<50 Low (Undesirable) For Females
<40 Low (Undesirable) For Males NON-HDL CHOLESTEROL 04/21/2024 08:58:46 144 <=159 (mg/dL) Final Non-HDL Cholesterol Referenc e Range (mg/dL):
<100 Target level for high risk ASCVD patient
<130 Optimal for general population
130-159 Near optimal for general population
160-189 Borderline High
190-219 High
>=220 Very High LDL, (calculated) 04/21/2024 08:58:46 131 Above high n ormal <=129 (mg/dL) Final LDL Cholesterol Reference Ra nges (mg/dL):
<70 Target level for high risk ASCVD patient
<100 Optimal for general population
100-129 Near optimal for general population
130-159 Borderline high
160-189 High
>=190 Very high Performing Location LABORATORY [facility] [place] - [address] [facility] [address]
--- NOTE | 2024-07-21 16:37 | History & Physical Report ---
Date of Service July 21, 2024 Assessment & Plan (1) Paroxysmal atrial fibrillation with RVR: (2) Acute heart failure with preserved ejection fraction: (3) COVID-19 virus infection: (4) Fibromuscular dysplasia: (5) Multiple thyroid nodules: Plan Patient presents to the emergency room with atrial fibrillation with rapid ventricular response and evidence of mild congestive heart failure most likely triggered from recent COVID-19 infection. Admit to the hospital in a monitored setting Increase oral metoprolol 25 mg 3 times daily for rate control Metoprolol IV as needed for sustained rates greater than 120 bpm Continue Eliquis for chronic anticoagulation and secondary stroke prevention Continue other home medications as ordered Echocardiogram Patient does examine slightly volume overloaded, some evidence of congestion on chest x-ray and elevated BNP, suspect some acute heart failure due to her rapid rates. Give 1 dose of IV Lasix now, reevaluate daily for diuretic dosing and /or need Consult cardiology, Dr. Evans aware, recommending maintaining n.p.o. over night in case they would want to proceed with cardioversion tomorrow Suspect patient's COVID-19 infection was anywhere from 10 to 30 days ago. She is completely asymptomatic at this time other than the potential atrial fibrillation. Believe that the risks of remdesivir treatment at this time outweigh any benefits. Will continue to monitor her O2 sat and for any other symptoms that may be related to a more acute and active COVID 19 infection. History of Present Illness Chief Complaint: Uncontrolled atrial fibrillation Primary Care Provider: Dar Montilla Patient is a 68-year-old female with known paroxysmal atrial fibrillation is on chronic anticoagulation with Eliquis but has not been on any medications for rate or rhythm control. This past Sunday evening as she was going to bed she could feel that she had flipped into atrial fibrillation. This persisted through the night and she went to [place] emergency department and at that time was found to be in atrial fibrillation with mild rapid ventricular response. Phone consultation was obtained with her medical technician assistant Dr. Evans who recommended starting on some metoprolol and having her follow-up in the office this week. However, overnight she could feel that she was having wide swings in her heart rates going from mid 50s to 160s. This caused her concern and she came to the emergency room for evaluation. In the emergency room her laboratory evaluation was significant for some mildly elevated BNP and she did test positive for COVID-19. EKG monitoring confirmed atrial fibrillation with moderate rapid ventricular response. She was referred to our service for further evaluation. Time my evaluation patient is feeling a little bit better. She has received metoprolol and her heart rates are little better. She does admit to some shortness of breath that has developed over the last 24 to 36 hours. As she just really has a chest discomfort from the palpitations and irregular heart rate. She states that it was almost a month ago she felt as though she had an upper respiratory like infection. At that time she states that she did test herself for influenza and COVID and tested negative. About 10 to 14 days ago she felt as though she was getting a sinus infection her PCP called in a course of Augmentin for her which she said she just finished this past week. Currently she has no upper respiratory infection symptoms. No nasal congestion no headache, no sore throat. No recent fevers. No chills. No cough. No new problems with bowels or bladder. She has not noticed any new swelling in her hands arms legs or feet. She states that she is normally in sinus rhythm. And has been compliant with her Eliquis medication. Allergies Allergy/AdvReac Type Severity Reaction Status Date / Time clarithromycin Allergy Unknown . Verified 06/22/23 14:06 Sulfa (Sulfonamide Allergy Unknown . Verified 06/22/23 14:06 Antibiotics) sulfamethoxazole Allergy Unknown . Verified 06/22/23 14:06 trimethoprim Allergy Unknown . Verified 06/22/23 14:06 Home Medications Medication Instructions Recorded Confirmed Type albuterol sulfate 90 mcg/actuation 2 puff inhalation Q6H PRN 12/30/18 07/21/24 History aerosol inhaler (ProAir HFA) Shortness Of Breath Or Wheezing apixaban 5 mg tablet (Eliquis) 5 mg PO BID 12/30/18 07/21/24 History glucosamine-chondroitin 750 mg-600 2 tab PO DAILY 12/30/18 07/21/24 History mg tablet ascorbic acid 100 mg-zinc sulfate 1 tab PO DAILY 06/22/23 07/21/24 History 200 mg tablet cholecalciferol (vitamin D3) 50 5,000 unit PO DAILY 06/22/23 07/21/24 History mcg (2,000 unit) capsule (Vitamin D3) coenzyme Q10 100 mg capsule 200 mg PO DAILY 06/22/23 07/21/24 History (CoQ-10) omeprazole 40 mg capsule,delayed 40 mg PO DAILY 06/22/23 07/21/24 History release vitamin B complex 1 cap PO DAILY 06/22/23 07/21/24 History acetaminophen 500 mg tablet 1,000 mg PO Q6H PRN Pain 07/21/24 07/21/24 History ezetimibe 10 mg tablet 10 mg PO DAILY 07/21/24 07/21/24 History metoprolol tartrate 25 mg tablet 25 mg PO BID 07/21/24 07/21/24 History trazodone 100 mg tablet 25 mg PO HS 07/21/24 07/21/24 History Past Med/Surg History Problem List (Updated 07/21/24 @ 16:34 by Toney Garcia DO) COVID-19 virus infection Acute heart failure with preserved ejection fraction Paroxysmal atrial fibrillation with RVR Right thyroid nodule Multiple thyroid nodules Medical History (Updated 07/21/24 @ 16:34 by Toney Garcia DO) Afib Fibromuscular dysplasia Social History (Updated 12/30/18 @ 17:03 by Soraya Miller) Smoking Status: Never smoker Hx Alcohol Use: Yes Preferred Language: Serbian Feels Safe at Home: Yes Review of Systems Review of Systems: Pertinent positive and negative review of systems as mentioned in the HPI Patient has followed with outpatient endocrinology for thyroid nodules Physical Exam Physical Exam: Constitutional: Alert, nontoxic, mild distress HEENT: Mucous membranes moist. Sclera clear Neck: Soft, no adenopathy Lungs: Decreased breath sounds, Rales at bases bilaterally CV: S1-S2, irregular irregular, tachycardic Abdomen: Soft, nontender, nondistended Extremities: Trace to 1+ pretibial edema Musculoskeletal: No significant joint tenderness Neuro: No focal deficits Psych: Cooperative, normal mood Results & Data Results & Data Vital Signs (Past 12 Hours) Vital Signs Temp Pulse Pulse Resp BP BP Pulse Ox 07/21/24 15:34 111 H 135/98 07/21/24 15:07 98 07/21/24 15:07 115 H 20 110/80 99 07/21/24 14:23 99 H 07/21/24 12:52 124 H 116/82 07/21/24 12:49 112 H 116/82 07/21/24 11:43 128 H 07/21/24 10:54 115 H 07/21/24 10:42 116 H 17 07/21/24 10:35 98 07/21/24 10:18 36.5 C 124 H 18 115/82 97 O2 Del Method 07/21/24 15:34 07/21/24 15:07 Room Air 07/21/24 15:07 Room Air 07/21/24 14:23 07/21/24 12:52 07/21/24 12:49 07/21/24 11:43 07/21/24 10:54 07/21/24 10:42 07/21/24 10:35 Room Air 07/21/24 10:18 Room Air Diagnostic Findings Reviewed imaging, laboratory and diagnostic studies. Pertinent findings as below. Personally reviewed EKG atrial fibrillation with rapid ventricular spots, no acute ST-T wave changes Personally reviewed chest x-ray, appears to be some mild congestion at the bases CBC within normal limits Respiratory viral panel positive for COVID-19 BNP 452 Troponin 10.0 Electrolytes stable Creatinine 0.77 TSH 2.1 Code Status & VTE Plan VTE Prophylaxis Plan VTE Prophylaxis will be ordered: No Reason for no VTE drug order: Contraindicated
--- NOTE | 2024-07-21 16:50 | Cardiology Consultation ---
Date of Consultation July 21, 2024 Assessment & Plan (1) Paroxysmal atrial fibrillation with RVR: (2) Acute heart failure with preserved ejection fraction: (3) COVID-19 virus infection: Plan * Patient describes that she felt that her heart rate was persistently elevated for the first 24 or so hours. More recently she has felt like her heart rate has gone up and down. Based on the appearance of the initial EKG performed at [facility] 2 days ago compared to her present EKG, I would speculate that she converted from an atrial flutter with regular RR interval, to atrial fibrillation. * Continue prior to hospital treatment with Eliquis 5 mg twice daily for stroke prophylaxis. Agree with metoprolol tartrate 25 mg 3 times daily * Add diltiazem infusion, 5 mg/min. Hold for heart rate less than 60, systolic blood pressure less than 100 * Agree with gentle diuresis. Likely mild volume overload due to atrial arrhythmia History of Present Illness History of Present Illness Lindsay Starr is a 68 year old female seen in cardiology consultation per the request of Dr Garcia for the evaluation of atrial fibrillation. She has a history of paroxysmal atrial fibrillation with most recent documented episode several years ago and is on Eliquis , but has not been on chronic AV harlan blocking medications and when in sinus rhythm her heart rate is usually in the 60s. She noted onset of palpitations on 07/18/24 and was seen in the ED at [facility] in 07/19/24. I had discussed her case with the ED provider that day. EKG suggested atrial flutter with rate of 123 bpm at that time. It was recommended that she start metoprolol tartrate 25 mg two times per day and follow up as an outpatient. In the meantime however, her palpitations persisted and she therefore presented to the ED at [facility]. EKG has revealed atrial fibrillation with rapid ventricular rate in the 130s. She is also has tested positive for SARS-CoV-2. She notes having had a respiratory tract infection illness a month ago and testing was negative for influenza and COVID at that time. She had another respiratory illness 10 to 14 days ago suggestive of a sinus infection and was treated with a course of Augme ntin. She denies any viral respiratory symptoms at present. Cardiac History: Severe mitral regurgitation with mitral valve prolapse status post bioprosthetic mitral valve replacement with a Miles bioprosthesis, January 2014 Paroxysmal atrial fibrillation, [id number] score 2 for risk factors of female and age over 65 but less than 75 Dyslipidemia Fibromuscular dysplasia Allergies Allergy/AdvReac Type Severity Reaction Status Date / Time clarithromycin Allergy Unknown . Verified 06/22/23 14:06 Sulfa (Sulfonamide Allergy Unknown . Verified 06/22/23 14:06 Antibiotics) sulfamethoxazole Allergy Unknown . Verified 06/22/23 14:06 trimethoprim Allergy Unknown . Verified 06/22/23 14:06 Home Medications Medication Instructions Recorded Confirmed Type albuterol sulfate 90 mcg/actuation 2 puff inhalation Q6H PRN 12/30/18 07/21/24 History aerosol inhaler (ProAir HFA) Shortness Of Breath Or Wheezing apixaban 5 mg tablet (Eliquis) 5 mg PO BID 12/30/18 07/21/24 History glucosamine-chondroitin 750 mg-600 2 tab PO DAILY 12/30/18 07/21/24 History mg tablet ascorbic acid 100 mg-zinc sulfate 1 tab PO DAILY 06/22/23 07/21/24 History 200 mg tablet cholecalciferol (vitamin D3) 50 5,000 unit PO DAILY 06/22/23 07/21/24 History mcg (2,000 unit) capsule (Vitamin D3) coenzyme Q10 100 mg capsule 200 mg PO DAILY 06/22/23 07/21/24 History (CoQ-10) omeprazole 40 mg capsule,delayed 40 mg PO DAILY 06/22/23 07/21/24 History release vitamin B complex 1 cap PO DAILY 06/22/23 07/21/24 History acetaminophen 500 mg tablet 1,000 mg PO Q6H PRN Pain 07/21/24 07/21/24 History ezetimibe 10 mg tablet 10 mg PO DAILY 07/21/24 07/21/24 History metoprolol tartrate 25 mg tablet 25 mg PO BID 07/21/24 07/21/24 History trazodone 100 mg tablet 25 mg PO HS 07/21/24 07/21/24 History Patient History Medical History (Updated 07/21/24 @ 16:34 by Toney Garcia DO) Afib Fibromuscular dysplasia Social History (Updated 12/30/18 @ 17:03 by Soraya Miller) Smoking Status: Never smoker Hx Alcohol Use: Yes Preferred Language: Croatian Feels Safe at Home: Yes Review of Systems Review of Systems: All systems reviewed & are unremarkable except as noted in HPI & below Physical Exam Physical Exam: General: no acute distress and stated age Eyes: conjunctiva are pink and non-injected, sclera clear Neck: normal jugular venous pulse, no hepatojugular reflux Chest: normal shape and normal respiratory effort Lungs: clear to auscultation and percussion Cardiac Exam: -Irregular rhythm, no murmurs. Abdomen: abdomen soft, non-tender, no abnormal masses and no hepatosplenomegaly Musculoskeletal: no gait disturbance, no weakness Extremities: no edema and no cyanosis Neuro:awake, conversant, follows commands, no focal motor deficits Psych: appropriate affect and insight. Results & Data Vital Signs (Past 12 Hours) Vital Signs Temp Pulse Pulse Resp BP BP Pulse Ox 07/21/24 15:34 111 H 135/98 07/21/24 15:07 98 07/21/24 15:07 115 H 20 110/80 99 07/21/24 14:23 99 H 07/21/24 12:52 124 H 116/82 07/21/24 12:49 112 H 116/82 07/21/24 11:43 128 H 07/21/24 10:54 115 H 07/21/24 10:42 116 H 17 07/21/24 10:35 98 07/21/24 10:18 36.5 C 124 H 18 115/82 97 O2 Del Method 07/21/24 15:34 07/21/24 15:07 Room Air 07/21/24 15:07 Room Air 07/21/24 14:23 07/21/24 12:52 07/21/24 12:49 07/21/24 11:43 07/21/24 10:54 07/21/24 10:42 07/21/24 10:35 Room Air 07/21/24 10:18 Room Air Laboratory Results Cardiac Enzymes 07/21/24 Range/Units 10:40 AST 21 (13-39) U/L Troponin I High Sens 10.0 (0-14) pg/ml B-Natriuretic Peptide 452 H (0-100) pg/ml Coagulation 07/21/24 Range/Units 10:40 PT 11.1 (9.0-12.0) Seconds APTT 29 (21-31) Seconds B-Natriuretic Peptide 452 H (0-100) pg/ml CBC 07/21/24 Range/Units 10:40 WBC 7.14 (4.8-10.8) K/ul RBC 4.62 (4.20-5.40) M/uL Hgb 13.3 (12.0-16.0) g/dl Hct 40.6 (37.0-47.0) % Plt Count 216 (130-400) K/uL Neut # (Auto) 4.52 (1.40-6.50) K/uL Lymph # (Auto) 1.80 (1.20-3.40) K/uL Titus # (Auto) 0.59 (0.11-0.59) K/uL Eos # (Auto) 0.16 (0.00-0.50) K/uL Baso # (Auto) 0.04 (0.00-0.20) K/uL Comprehensive Metabolic Panel 07/21/24 Range/Units 10:40 Sodium 140 (136-145) mmol/L Potassium 4.2 (3.5-5.1) mmol/L Chloride 107 (98-107) mmol/L Carbon Dioxide 27 (21-32) mmol/L BUN 18 (6-23) mg/dl Creatinine 0.77 (0.6-1.2) mg/dl Glucose 98 (70-99(Fasting)) mg/dl Calcium 9.4 (8.6-10.3) mg/dl AST 21 (13-39) U/L ALT 21 (7-52) U/L Alkaline Phosphatase 61 (34-104) U/L Total Protein 6.9 (6.0-8.3) gm/dl Albumin 3.9 (3.4-5.0) gm/dl Intake and Output 07/21/24 07/21/24 07/21/24 06:59 14:59 22:59 Intake Total 1100 / 1100 Balance 1100 / 1100 Intake: IV 1100 / 1100 Magnesium Sulfate / D5w 1 gm In 100 / 100 100 ml @ 100 mls/hr IV NOW STA Rx#:[id number] Sodium Chloride 0.9% 1,000 ml @ 1000 / 1000 999 mls/hr IV .Q1H1M ONE Rx#: [id number] Other: Weight 75.4 kg Weight Measurement Method Chair Scale Patient Weight 07/22/24 06:59 Weight 75.4 kg Diagnostic Findings EKG performed at 07/21/2024 at 10:29 AM and interpret independently: Atrial fibrillation 128 bpm, otherwise normal EKG. Compared to the previous dating back to 2019, atrial fibrillation has replaced sinus rhythm and the ventricular rate has increased by 43 bpm Radiology report of chest x-ray: Mild cardiomegaly and mild pulmonary vascular congestion. Most recent echocardiogram performed 02/23/23: The LV wall thickness is normal. The left ventricular wall motion is normal. The left ventricular systolic function is normal. Calculated LV ejection Fraction = 62% (three dimensional volumes). The left atrium is enlarged to a moderate to severe degree. There is a mitral valve bioprosthesis present. The prosthetic leaflets are relatively well visualized (image 23/83) with normal excursion. The mitral valve prosthesis systolic gradients are normal for this type prosthesis. Significant mitral valve prosthesis regurgitation is absent. There is no evidence of pulmonary hypertension. Trace aortic regurgitation is present.
[2024-07-21] MEDS ORDERED: METOPROLOL TARTRATE 1 MG/ML VIAL IV PRN (17:01)
[2024-07-21] MEDS ORDERED: ALUMINUM/MAGNESIUM SUSP 30 ML UDC PO PRN (17:01)
[2024-07-21] MEDS ORDERED: ONDANSETRON INJ 2 MG/ML 2 ML VIAL IV PRN (17:01)
[2024-07-21] MEDS ORDERED: STAT IV Infusion **Titration per Protocol STA (17:29)
[2024-07-21] MEDS: METOPROLOL TARTRATE 25 MG TAB PO SCH (18:11)
[2024-07-21] MEDS: FUROSEMIDE INJ 20 MG/2 ML VIAL IV ONE (18:13)
[2024-07-21] MEDS: dilTIAZem HCL 125 MG in DEXTROSE 5% 100 ML IV SCH (18:14)
[2024-07-21] MEDS: ACETAMINOPHEN 325 MG TAB PO PRN (21:49)
[2024-07-21] MEDS: APIXABAN 5 MG TABLET PO SCH (21:49)
[2024-07-21] MEDS: traZODone HCL 50 MG TAB PO SCH (22:47)
[2024-07-22 08:10] VITALS: TEMP 97.9
[2024-07-22 08:17] LABS: Calcium 9.4 mg/dl (8.6-10.3); Creatinine Clr Calc Pharmacy 65.7 ml/min; Potassium 3.8 mmol/L (3.5-5.1)
[2024-07-22] MEDS: EZETIMIBE 10 MG TAB PO SCH (09:01)
[2024-07-22] MEDS: METOPROLOL TARTRATE 50 MG TAB PO SCH (09:01)
--- NOTE | 2024-07-22 09:32 | Cardiology Progress Note ---
Date of Service July 22, 2024 Assessment & Plan (1) Paroxysmal atrial fibrillation with RVR: (2) Acute heart failure with preserved ejection fraction: (3) COVID-19 virus infection: (4) S/P mitral valve replacement with bioprosthetic valve: Plan * Risk, benefit, and alternative to external direct-current cardioversion discussed. Patient agreeable to proceed. Anesthesia consultation requested for sedation. * Likely reduce beta-graeme dose to 25 mg twice daily post cardioversion due to history of resting sinus bradycardia. * Continue oral anticoagulation with Eliquis. I spent a total of 45 minutes on the date of service in preparation, delivery, and documentation of the care provided to this patient, excluding any time spent in the performance of separately billed services. Admission and Anticipated Discharge Date Admission Date: July 21, 2024 Subjective Patient seen and examined at the bedside. Remains in atrial fibrillation with intermittent rapid ventricular response on telemetry. Notes intermittent palpitations. No chest discomfort or shortness of breath. Denies orthopnea, PND, or edema. Recently prescribed metoprolol tartrate 25 mg twice daily due to new onset atrial fibrillation/flutter. Prior to onset of atrial fibrillation, patient was not treated with beta-graeme therapy due to resting sinus bradycardia. IV diltiazem ordered last night, however, discontinued due to hypotension. Chronically anticoagulated with Eliquis. She has not missed any doses of anticoagulation over the past 30 days. Preliminary review of bedside 2D transthoracic echocardiogram demonstrates preserved LV systolic function with mild bioprosthetic mitral valve regurgitation. Review of Systems Review of Systems: All systems reviewed & are unremarkable except as noted in Subjective Physical Exam Constitutional: well nourished; no acute distress Respiratory: no respiratory distress, no labored breathing and no retractions Auscultation: no crackles, no rales, no rhonchi and no wheezes Cardiovascular: Rate/Rhythm: + tachycardic and + irregularly irregular Heart Sounds: normal S1 and normal S2 Results & Data Vital Signs (Past 12 Hours) Vital Signs Temp Pulse Pulse Resp BP BP Pulse Ox 07/22/24 08:09 36.6 C 71 16 124/77 95 07/22/24 04:13 71 94/65 L 07/22/24 02:26 36.5 C 84 14 99/66 L 96 07/21/24 23:51 102 H 91/57 L 07/21/24 22:15 36.5 C 63 114/77 96 07/21/24 22:04 68 95 07/21/24 21:38 64 19 99/58 L 94 O2 Del Method 07/22/24 08:09 Room Air 07/22/24 04:13 07/22/24 02:26 Room Air 07/21/24 23:51 07/21/24 22:15 Room Air 07/21/24 22:04 Room Air 07/21/24 21:38 Room Air Laboratory Results Cardiac Enzymes 07/21/24 Range/Units 10:40 AST 21 (13-39) U/L Troponin I High Sens 10.0 (0-14) pg/ml B-Natriuretic Peptide 452 H (0-100) pg/ml Coagulation 07/21/24 Range/Units 10:40 PT 11.1 (9.0-12.0) Seconds APTT 29 (21-31) Seconds B-Natriuretic Peptide 452 H (0-100) pg/ml CBC 07/21/24 Range/Units 10:40 WBC 7.14 (4.8-10.8) K/ul RBC 4.62 (4.20-5.40) M/uL Hgb 13.3 (12.0-16.0) g/dl Hct 40.6 (37.0-47.0) % Plt Count 216 (130-400) K/uL Neut # (Auto) 4.52 (1.40-6.50) K/uL Lymph # (Auto) 1.80 (1.20-3.40) K/uL Allen # (Auto) 0.59 (0.11-0.59) K/uL Eos # (Auto) 0.16 (0.00-0.50) K/uL Baso # (Auto) 0.04 (0.00-0.20) K/uL Comprehensive Metabolic Panel 07/21/24 07/22/24 Range/Units 10:40 07:05 Sodium 140 141 (136-145) mmol/L Potassium 4.2 3.8 (3.5-5.1) mmol/L Chloride 107 106 (98-107) mmol/L Carbon Dioxide 27 30 (21-32) mmol/L BUN 18 17 (6-23) mg/dl Creatinine 0.77 0.81 (0.6-1.2) mg/dl Glucose 98 93 (70-99(Fasting)) mg/dl Calcium 9.4 9.4 (8.6-10.3) mg/dl AST 21 (13-39) U/L ALT 21 (7-52) U/L Alkaline Phosphatase 61 (34-104) U/L Total Protein 6.9 (6.0-8.3) gm/dl Albumin 3.9 (3.4-5.0) gm/dl Intake and Output 07/21/24 07/22/24 07/22/24 22:59 06:59 14:59 Intake Total 17.333 / 1122.500 5.167 / 1122.500 Balance 17.333 / 1122.500 5.167 / 1122.500 Intake: IV 17.333 / 1122.500 5.167 / 1122.500 dilTIAZem HCL 125 mg In 17.333 / 22.500 5.167 / 22.500 Dextrose 5% 100 ml @ 5 MG/HR 5 mls/hr IV .Q24H [facility] Rx#: [id number] Other: Weight 73.8 kg 73.8 kg Weight Measurement Method Standing Scale Built in [facility]
--- NOTE | 2024-07-22 10:45 | Hospitalist Progress Note ---
Date of Service July 22, 2024 Assessment & Plan (1) Paroxysmal atrial fibrillation with RVR: Plan: -continues to be in afib, however RVR appears improved, drip off at this time PLan: -increase metoprolol 50 tid -appreciate cardiology recs, consideration of cardioversion -gentle diuresis, attempt net even, 1 dose of IV lasix 20 ordered this morning -continue eliquis (2) Acute heart failure with preserved ejection fraction: Plan: -no evidence of diastolic dysfunction on echo, but suggested by dilated left atrium -dilated left atrium will make rate control more difficult PLan: -may benefit from SGLT2 inhibitor at discharge (3) COVID-19 virus infection: Plan: -asymptomatic at this time (4) Fibromuscular dysplasia: (5) Multiple thyroid nodules: Plan Feeding/fluids: heart healthy Analgesia: tylenol Sedation: na Thromboprophylaxis: eliquis Head up position: na Ulcer prophylaxis: protonix Glycemic control: na Spontaneous breathing trial: na Bowel care: start miralax prn Indwelling catheter removal: na Deescalation of antibiotics: na I spent a total of 50 minutes in direct patient care, including [id number] time with the patient and/or family, reviewing medical records, ordering and reviewing diagnostic tests, and coordinating care with other healthcare prov iders. This time includes: history taking, physical examination, medical decision making, counseling, ECG interpretation, imaging interpretation, lab interpretation, orders, and education, excluding time spent in the performance of separately billed services. Admission and Anticipated Discharge Date Admission Date: July 21, 2024 Subjective Patient seen and examined at bedside. Ms. Starr is doing well today. She states she feels back to her baseline. She would like to go home. Discussed need for further titration of medications, and discussing with cardiology next steps. Agreeable to plan. Review of Systems Review of Systems: CONSTITUTIONAL: Patient denies fevers, chills, sweats and weight changes. EYES: Patient denies any visual symptoms. EARS, NOSE, AND THROAT: No difficulties with hearing. No symptoms of rhinitis or sore throat. CARDIOVASCULAR: Patient denies chest pains, palpitations, orthopnea and paroxysmal nocturnal dyspnea. RESPIRATORY: No dyspnea on exertion, no wheezing or cough. GI: No nausea, vomiting, diarrhea, constipation, abdominal pain, hematochezia or melena. : No urinary hesitancy or dribbling. No nocturia or urinary frequency. No abnormal urethral discharge. MUSCULOSKELETAL: No myalgias or arthralgias. NEUROLOGIC: No chronic headaches, no seizures. Patient denies numbness, tingling or weakness. PSYCHIATRIC: Patient denies problems with mood disturbance. No problems with anxiety. ENDOCRINE: No excessive urination or excessive thirst. DERMATOLOGIC: Patient denies any rashes or skin changes. Physical Exam Physical Exam: Gen: A&O 3 NAD HEENT: NCAT, EOMI, not icteric. External ears normal. No rhinorrhea. Moist mucous membranes. Neck: Supple, full range of motion, no observable masses, No meningeal sign. Lungs: No Respiratory distress. CV: irregular rhythm, regular rate, no edema. Abdomen: Soft, nondistended, No rebound tenderness. MSK: No joint swelling, no redness. Skin: No rashes, petechiae, lesions. Normal color per patient. Neuro: Normal Gait, Grossly intact. Psych: Appropriate for situation. Results & Data Results & Data Vital Signs (Past 12 Hours) Vital Signs Temp Pulse Resp BP BP Pulse Ox O2 Del Method 07/22/24 08:09 36.6 C 71 16 124/77 95 Room Air 07/22/24 04:13 71 94/65 L 07/22/24 02:26 36.5 C 84 14 99/66 L 96 Room Air 07/21/24 23:51 102 H 91/57 L Laboratory Results -personally reviewed, COVID positive likely source of worsening RVR Medications Administered Acetaminophen (Acetaminophen 325 Mg Tab) 650 mg PO Q4H PRN PRN Reason: Pain or Fever Stop: 08/20/24 17:00 Last Admin: 07/21/24 21:49 Dose: 650 mg Documented By: SANDRA Apixaban (Apixaban 5 Mg Tablet) 5 mg PO BID [facility] Stop: 08/20/24 20:59 Last Admin: 07/22/24 09:01 Dose: 5 mg Documented By: Admin: 07/21/24 21:49 Dose: 5 mg Documented By: SANDRA Ezetimibe (Ezetimibe 10 Mg Tab) 10 mg PO DAILY [facility] Stop: 08/21/24 08:59 Last Admin: 07/22/24 09:01 Dose: 10 mg Documented By: LONI Diltiazem HCl 125 mg/ Dextrose 125 mls @ 0 mls/hr IV .Q0M UMANG; Protocol Stop: 08/20/24 17:29 Last Titration: 07/21/24 23:52 Dose: 0 mg/hr, 0 mls/hr Documented By: LMP Co-signed By: RUIZ Titration: 07/21/24 22:50 Dose: 5 mg/hr, 5 mls/hr Documented By: LMP Co-signed By: CJC Titration: 07/21/24 21:42 Dose: 0 mg/hr, 0 mls/hr Documented By: MED Co-signed By: ASHLEE Admin: 07/21/24 18:14 Dose: 5 mg/hr, 5 mls/hr Documented By: GERARDO Co-signed By: JACKI Metoprolol Tartrate (Metoprolol Tartrate 50 Mg Tab) 50 mg PO TID [facility] Stop: 08/21/24 08:59 Last Admin: 07/22/24 09:01 Dose: 50 mg Documented By: LONI Trazodone HCl (Trazodone Hcl 50 Mg Tab) 25 mg PO HS [facility] Stop: 08/20/24 20:59 Last Admin: 07/21/24 22:47 Dose: 25 mg Documented By: LMP
[2024-07-22] MEDS ORDERED: POLYETHYLENE (MIRALAX) 17 GM PACK PO PRN (10:57)
--- NOTE | 2024-07-22 11:22 | Anesthesiology Consultation ---
Date of Service July 22, 2024 Assessment & Plan Chart Review Chart Review: Acceptable Risk for Surgery and Patient NOT seen in Pre Admission Testing History Surgery Operation Date: 07/22/24 11:30 Proposed Procedures p Cardioversion - Chirag Garcia DO Height/Weight Height: 5 ft 3 in Weight: 73.8 kg Allergies Allergy/AdvReac Type Severity Reaction Status Date / Time clarithromycin Allergy Unknown . Verified 06/22/23 14:06 Sulfa (Sulfonamide Allergy Unknown . Verified 06/22/23 14:06 Antibiotics) sulfamethoxazole Allergy Unknown . Verified 06/22/23 14:06 trimethoprim Allergy Unknown . Verified 06/22/23 14:06 Medications Home Medications Medication Instructions Recorded Confirmed Last Taken albuterol sulfate 90 mcg/actuation 2 puff inhalation Q6H PRN 12/30/18 07/21/24 Unknown aerosol inhaler (ProAir HFA) Shortness Of Breath Or Wheezing apixaban 5 mg tablet (Eliquis) 5 mg PO BID 12/30/18 07/21/24 07/21/24 glucosamine-chondroitin 750 mg-600 2 tab PO DAILY 12/30/18 07/21/24 12/30/18 mg tablet ascorbic acid 100 mg-zinc sulfate 1 tab PO DAILY 06/22/23 07/21/24 Unknown 200 mg tablet cholecalciferol (vitamin D3) 50 5,000 unit PO DAILY 06/22/23 07/21/24 Unknown mcg (2,000 unit) capsule (Vitamin D3) coenzyme Q10 100 mg capsule 200 mg PO DAILY 06/22/23 07/21/24 Unknown (CoQ-10) omeprazole 40 mg capsule,delayed 40 mg PO DAILY 06/22/23 07/21/24 Unknown release vitamin B complex 1 cap PO DAILY 06/22/23 07/21/24 Unknown acetaminophen 500 mg tablet 1,000 mg PO Q6H PRN Pain 07/21/24 07/21/24 07/21/24 ezetimibe 10 mg tablet 10 mg PO DAILY 07/21/24 07/21/24 Unknown metoprolol tartrate 25 mg tablet 25 mg PO BID 07/21/24 07/21/24 Unknown trazodone 100 mg tablet 25 mg PO HS 07/21/24 07/21/24 Unknown Active Medications Generic Name Dose Route Start Last Admin Trade Name Freq PRN Reason Stop Dose Admin Acetaminophen 650 mg 07/21/24 17:01 07/21/24 21:49 Acetaminophen 325 Mg Tab PO 08/20/24 17:00 650 mg Q4H PRN Administration Pain or Fever Apixaban 5 mg 07/21/24 21:00 07/22/24 09:01 Apixaban 5 Mg Tablet PO 08/20/24 20:59 5 mg BID UMANG Administration Ezetimibe 10 mg 07/22/24 09:00 07/22/24 09:01 Ezetimibe 10 Mg Tab PO 08/21/24 08:59 10 mg DAILY UMANG Administration Diltiazem HCl 125 mg/ Dextrose 125 mls @ 0 mls/hr 07/21/24 17:30 07/21/24 23:52 IV 08/20/24 17:29 0 mg/hr .Q0M UMANG 0 mls/hr Titration Protocol 0 MG/HR Metoprolol Tartrate 50 mg 07/22/24 09:00 07/22/24 09:01 Metoprolol Tartrate 50 Mg Tab PO 08/21/24 08:59 50 mg TID UMANG Administration Trazodone HCl 25 mg 07/21/24 21:00 07/21/24 22:47 Trazodone Hcl 50 Mg Tab PO 08/20/24 20:59 25 mg HS UMANG Administration Past Medical History Medical History Afib Fibromuscular dysplasia Social History Smoking Status: Never smoker Hx Alcohol Use: Yes alcohol intake frequency: holidays/special occasions only Hx Substance Use: No Physical Exam Vital Signs Last Vital Signs Temp 36.6 C 07/22/24 08:09 Pulse 71 07/22/24 08:09 Resp 16 07/22/24 08:09 BP 124/77 07/22/24 08:09 Pulse Ox 95 07/22/24 08:09 O2 Del Method Room Air 07/22/24 08:09 Testing Laboratory Results 07/21/24 10:40 07/22/24 07:05 PT 11.1 Seconds (9.0-12.0) 07/21/24 10:40 INR 1.0 (0.9-1.1) 07/21/24 10:40 APTT 29 Seconds (21-31) 07/21/24 10:40
[2024-07-22] MEDS ORDERED: PROPOFOL IV EMULSION 10 MG/ML 20 ML VIAL IV ONE (11:46)
[2024-07-22 11:51] VITALS: RESP 16
[2024-07-22 11:55] VITALS: BP 107/68; O2SAT 95
--- NOTE | 2024-07-22 11:55 | Anesthesiology Progress Note ---
Date of Service July 22, 2024 Anesthesia Post Procedure Vital Signs Vital Signs: Temp Pulse Pulse Resp BP BP BP 07/22/24 11:48 56 L 16 96/61 L 07/22/24 11:42 56 L 18 104/62 07/22/24 11:21 103 H 18 136/72 07/22/24 08:09 36.6 C 71 16 124/77 07/22/24 04:13 71 94/65 L 07/22/24 02:26 36.5 C 84 14 99/66 L 07/21/24 23:51 102 H 91/57 L 07/21/24 22:15 36.5 C 63 114/77 07/21/24 22:04 68 07/21/24 21:38 64 19 99/58 L 07/21/24 21:00 78 110/70 07/21/24 19:15 126/87 07/21/24 19:15 126/87 07/21/24 19:05 75 21 07/21/24 19:05 77 19 126/87 07/21/24 19:00 120/80 07/21/24 18:53 75 15 07/21/24 18:51 96 H 19 07/21/24 18:45 131/90 07/21/24 18:31 125/77 07/21/24 18:31 125/77 07/21/24 18:27 114/82 07/21/24 18:21 122 H 29 H 07/21/24 18:00 140 H 23 07/21/24 18:00 119/95 07/21/24 18:00 119/95 07/21/24 18:00 99 H 18 119/95 07/21/24 17:30 125/79 07/21/24 17:30 125/79 07/21/24 17:30 125/79 07/21/24 17:30 91 H 19 07/21/24 17:08 111 H 18 07/21/24 17:00 109/91 07/21/24 17:00 99 H 18 109/91 07/21/24 16:30 117/73 07/21/24 16:24 87 16 07/21/24 16:06 101 H 24 07/21/24 15:34 111 H 135/98 07/21/24 15:33 99 H 20 07/21/24 15:30 135/98 07/21/24 15:30 135/98 07/21/24 15:27 111 H 17 07/21/24 15:07 07/21/24 15:07 115 H 20 110/80 07/21/24 15:00 110/80 07/21/24 15:00 110/80 07/21/24 15:00 110/80 07/21/24 15:00 124 H 12 07/21/24 14:45 107 H 20 07/21/24 14:30 109/85 07/21/24 14:30 109/85 07/21/24 14:27 92 H 22 07/21/24 14:23 99 H 07/21/24 14:21 106 H 13 07/21/24 13:30 137/88 07/21/24 13:30 137/88 07/21/24 13:30 103 H 14 07/21/24 13:12 127 H 14 07/21/24 12:52 124 H 116/82 07/21/24 12:49 112 H 116/82 07/21/24 12:43 116/82 07/21/24 12:43 116/82 07/21/24 12:43 116/82 07/21/24 12:36 127 H 9 L 07/21/24 12:33 106 H 12 07/21/24 12:31 112/77 07/21/24 12:31 112/77 07/21/24 12:15 97 H 22 07/21/24 12:12 117 H 16 Pulse Ox O2 Del Method 07/22/24 11:48 96 Room Air 07/22/24 11:42 95 Room Air 07/22/24 11:21 100 Room Air 07/22/24 08:09 95 Room Air 07/22/24 04:13 07/22/24 02:26 96 Room Air 07/21/24 23:51 07/21/24 22:15 96 Room Air 07/21/24 22:04 95 Room Air 07/21/24 21:38 94 Room Air 07/21/24 21:00 07/21/24 19:15 07/21/24 19:15 07/21/24 19:05 97 07/21/24 19:05 96 Room Air 07/21/24 19:00 07/21/24 18:53 95 07/21/24 18:51 95 02/17/25 18:45 07/21/24 18:31 07/21/24 18:31 07/21/24 18:27 07/21/24 18:21 97 07/21/24 18:00 96 07/21/24 18:00 07/21/24 18:00 07/21/24 18:00 96 Room Air 07/21/24 17:30 07/21/24 17:30 07/21/24 17:30 07/21/24 17:30 96 07/21/24 17:08 97 07/21/24 17:00 07/21/24 17:00 97 07/21/24 16:30 07/21/24 16:24 96 07/21/24 16:06 95 07/21/24 15:34 07/21/24 15:33 99 07/21/24 15:30 07/21/24 15:30 07/21/24 15:27 98 07/21/24 15:07 98 Room Air 07/21/24 15:07 99 Room Air 07/21/24 15:00 07/21/24 15:00 07/21/24 15:00 07/21/24 15:00 97 07/21/24 14:45 93 07/21/24 14:30 07/21/24 14:30 07/21/24 14:27 98 07/21/24 14:23 07/21/24 14:21 96 07/21/24 13:30 07/21/24 13:30 07/21/24 13:30 96 07/21/24 13:12 98 07/21/24 12:52 07/21/24 12:49 07/21/24 12:43 07/21/24 12:43 07/21/24 12:43 07/21/24 12:36 07/21/24 12:33 07/21/24 12:31 07/21/24 12:31 07/21/24 12:15 07/21/24 12:12 Transfer of Care Handoff Completed per policy Notes Mental Status: alert / awake / arousable and participated in evaluation Patient Amnestic to Procedure: Yes Nausea / Vomiting: adequately controlled Pain: adequately controlled Airway Patency, RR, SpO2: stable & adequate BP & HR: stable & adequate Hydration State: stable & adequate Anesthetic Complications: no major complications apparent and Pt Satisfied with anesthetic care
--- NOTE | 2024-07-22 12:05 | Cardioversion ---
Date of Service July 22, 2024 Electrical Cardioversion Rpt Electrical Cardioversion Report Indication: Paroxysmal atrial fibrillation with rapid ventricular response Complications: None Estimated blood loss: None Anesthesia: Conscious sedation provided by the anesthesia service with propofol. Please see separate report. Procedural summary: Patient was brought to the PACU in a fasting state. Defibrillator pads were placed in anterior and posterior position. Atrial fibrillation confirmed on monitor. When adequate sedation achieved, the defibrillator was synced to the QRS complex. A single 200 J shock was delivered. Patient successfully converted from atrial fibrillation to sinus bradycardia. A brief run of accelerated junctional rhythm at approximately 75 bpm recorded post cardioversion which spontaneously broke to sinus bradycardia. Patient tolerated procedure well. No focal neurologic deficit post procedure. Conclusion: Successful external direct-current cardioversion from atrial fibrillation to sinus bradycardia with 200 J. Chirag Garcia DO, FACC
[2024-07-22] MEDS: PANTOprazole 40 MG TAB PO SCH (12:08)
[2024-07-22] MEDS: FUROSEMIDE INJ 20 MG/2 ML VIAL IV ONE (12:08)
[2024-07-22] MEDS: POTASSIUM CHLORIDE CRTAB 20 MEQ TABCR PO STA (12:08)
--- NOTE | 2024-07-22 15:29 | Communication Note ---
By CMS guidelines, a determination that the admission or continued stay is not medically necessary has been made by a member of the UR committee and a physician for this hospital stay, therefore a Code 44 will be completed and the Inpatient admission will be changed to outpatient. Date of Service: July 22, 2024
--- NOTE | 2024-07-22 15:31 | Discharge Summary ---
Discharge Summary Date of Service July 22, 2024 Principal Dx & Hospital Course #1 = Principal Diagnosis (1) Paroxysmal atrial fibrillation with RVR: -continues to be in afib, however RVR appears improved, drip off at this time PLan: -decrease metoprolol to 25 bid per cardiology -s/p cardioversion, in sinus rhythm -continue eliquis (2) Acute heart failure with preserved ejection fraction: -no evidence of diastolic dysfunction on echo, but suggested by dilated left atrium -dilated left atrium will make rate control more difficult (3) COVID-19 virus infection: -asymptomatic at this time (4) Fibromuscular dysplasia: (5) Multiple thyroid nodules: Notes For Next Care Provider Patient is a 68-year-old female with known paroxysmal atrial fibrillation is on chronic anticoagulation with Eliquis but has not been on any medications for rate or rhythm control. This past Sunday evening as she was going to bed she could feel that she had flipped into atrial fibrillation. In ED, noted to be in afib with RVR, admitted to medicine. Dilt drip started, beta graeme uptitrated. Cardioversion perforemed 07/22, patient stayed in sinus rhythm. ON 07/22/2024 patient medically stable for discharge, cardiology in agreement. Medication Changes From Visit -changed metoprolol dose Admission HPI Per Admitting Provider Patient is a 68-year-old female with known paroxysmal atrial fibrillation is on chronic anticoagulation with Eliquis but has not been on any medications for rate or rhythm control. This past Sunday evening as she was going to bed she could feel that she had flipped into atrial fibrillation. This persisted throu gh the night and she went to [place] emergency department and at that time was found to be in atrial fibrillation with mild rapid ventricular response. Phone consultation was obtained with her washer blanket Dr. Evans who recommended starting on some metoprolol and having her follow-up in the office this week. However, overnight she could feel that she was having wide swings in her heart rates going from mid 50s to 160s. This caused her concern and she came to the emergency room for evaluation. In the emergency room her laboratory evaluation was significant for some mildly elevated BNP and she did test positive for COVID-19. EKG monitoring confirmed atrial fibrillation with moderate rapid ventricular response. She was referred to our service for further evaluation. Time my evaluation patient is feeling a little bit better. She has received metoprolol and her heart rates are little better. She does admit to some shortness of breath that has developed over the last 24 to 36 hours. As she just really has a chest discomfort from the palpitations and irregular heart rate. She states that it was almost a month ago she felt as though she had an upper respiratory like infection. At that time she states that she did test herself for influenza and COVID and tested negative. About 10 to 14 days ago she felt as though she was getting a sinus infection her PCP called in a course of Augmentin for her which she said she just finished this past week. Currently she has no upper respiratory infection symptoms. No nasal congestion no headache, no sore throat. No recent fevers. No chills. No cough. No new problems with bowels or bladder. She has not noticed any new swelling in her hands arms legs or feet. She states that she is normally in sinus rhythm. And has been compliant with her Eliquis medication. Discharge Exam Gen: A&O 3 NAD HEENT: NCAT, EOMI, not icteric. External ears normal. No rhinorrhea. Moist muc ous membranes. Neck: Supple, full range of motion, no observable masses, No meningeal sign. Lungs: No Respiratory distress. CV: sinus rhythm, regular rate, no edema. Abdomen: Soft, nondistended, No rebound tenderness. MSK: No joint swelling, no redness. Skin: No rashes, petechiae, lesions. Normal color per patient. Neuro: Normal Gait, Grossly intact. Psych: Appropriate for situation. Updated Medication List Medication Instructions Recorded Confirmed Type albuterol sulfate 90 mcg/actuation 2 puff inhalation Q6H PRN 12/30/18 07/21/24 History aerosol inhaler (ProAir HFA) Shortness Of Breath Or Wheezing apixaban 5 mg tablet (Eliquis) 5 mg PO BID 12/30/18 07/21/24 History glucosamine-chondroitin 750 mg-600 2 tab PO DAILY 12/30/18 07/21/24 History mg tablet ascorbic acid 100 mg-zinc sulfate 1 tab PO DAILY 06/22/23 07/21/24 History 200 mg tablet cholecalciferol (vitamin D3) 50 5,000 unit PO DAILY 06/22/23 07/21/24 History mcg (2,000 unit) capsule (Vitamin D3) coenzyme Q10 100 mg capsule 200 mg PO DAILY 06/22/23 07/21/24 History (CoQ-10) omeprazole 40 mg capsule,delayed 40 mg PO DAILY 06/22/23 07/21/24 History release vitamin B complex 1 cap PO DAILY 06/22/23 07/21/24 History acetaminophen 500 mg tablet 1,000 mg PO Q6H PRN Pain 07/21/24 07/21/24 History ezetimibe 10 mg tablet 10 mg PO DAILY 07/21/24 07/21/24 History metoprolol tartrate 25 mg tablet 25 mg PO BID 07/21/24 07/21/24 History trazodone 100 mg tablet 25 mg PO HS 07/21/24 07/21/24 History metoprolol tartrate 25 mg tablet 25 mg PO BID #60 tabs 07/22/24 Rx Hospital Stay Data Consultations 07/21/24 16:16 ED Decision to Admit Stat 07/21/24 17:01 Consult Cardiology Routine Procedures Performed Operation Date: 07/22/24 11:30 Actual Procedures p Cardioversion Simeon Garcia DO Pending Results Patient Have Any Pending Studies at Discharge: No Discharge Instructions Given to Patient (Per Discharging Provider) 1. Please take medications as prescribed. 2. Please follow up with cardiology and PCP. Total Time Total Time Spent Total Time Spent (In Minutes): I spent a total of 35 minutes in direct patient care, including [id number] time with the patient and/or family, reviewing medical records, ordering and reviewing diagnostic tests, and coordinating care with other healthcare providers. This time includes: history taking, physical examination, medical decision making, counseling, ECG interpretation, imaging interpretation, lab interpretation, orders, and education, excluding time spent in the performance of separately billed services.
[2024-07-22 15:47] VITALS: PULSE 56
[2024-07-22] MEDS ORDERED: METOPROLOL TARTRATE 25 MG TAB PO SCH (21:00)
== END 2024-07-22 16:23 | disposition home or self-care (01) | DRG 308 ==
LOC: ED 10:16 → EDINP 16:19 → SUATTDRO 16:19 → 2S 22:04